=== PATIENT | female | born 1980 | race Caucasian/White ===

== ENCOUNTER 2020-12-10 09:09 | Emergency (ER) | payer OTHER ==
[~2020-12-10] VITALS: Ht 172.7 cm; Wt 104.0 kg
[2020-12-10] MEDS ORDERED: IBUPROFEN 600MG TABLET PO ONE (10:00)
[2020-12-10] MEDS ORDERED: IBUP-2028 MT (10:15)
[2020-12-10 12:00] VITALS: BP 125/80
== END 2020-12-10 12:23 | disposition home or self-care (01) ==
LOC: ER 09:09
DX: M25.511 Pain in right shoulder (principal); M54.89 Other dorsalgia; R03.0 Elevated blood-pressure reading, without diagnosis of hypertension; V49.49XA Driver injured in collision with other motor vehicles in traffic accident, initial encounter; Y93.89 Activity, other specified; Y92.488 Other paved roadways as the place of occurrence of the external cause
CPT/HCPCS: 73030; 99283